=== PATIENT | female | born 1970 | race Two or more races ===

== ENCOUNTER 2016-08-26 10:43 | Emergency (ER) | payer OTHER, MEDICAID ==
[2016-08-26 10:56] VITALS: TEMP 97.7; O2SAT 98
--- NOTE | 2016-08-26 11:56 | EDPHY ---
General Narrative: CHIEF COMPLAINT: Cough, fever HISTORY OF PRESENT ILLNESS: Patient complains of 1 day history of cough and fever. She woke this morning feeling warm. She has been coughing throughout the day with a nonproductive, persistent cough. Is a painful cough but no chest pain at rest. No shortness of breath. She may be wheezing she feels. No headache. No neck pain or stiffness. No nausea or vomiting. No abdominal or urinary complaints. Has a 1-year-old child with the same complaints with the past 3 days. No recent travel or surgery. No history of venous thrombolic event. The lower extremity erythema edema or pain. No improvement with over-the -counter medications thus far. no other associated complaints or modifying factors. REVIEW OF SYSTEMS: Ten systems reviewed and are negative unless otherwise noted in the HPI EXAMINATION General Appearance: Alert, no distress Head: normocephalic, atraumatic Eyes: Pupils equal and round, no conjunctival pallor or injection. EOMs intact ENT, Mouth: Mucous membranes moist. Uvula midline. No erythema. Neck: Normal inspection, supple, non-tender. No meningismus or rigidity. Respiratory: Lungs are clear to auscultation. No wheezing, rhonchi or crackles. No consolidation or diminishment. Cardiovascular: Regular rate and rhythm. No murmur. Pulses intact distally. Gastrointestinal: Abdomen is soft and nontender Back: non-tender, no bony abnormalities Neurological: A&O, nonfocal, normal gait Skin: Warm and dry, no rash Extremities: Nontender, no pedal edema Psychiatric: Mood and affect normal DIFFERENTIAL DIAGNOSES: Including but not limited to bronchitis, pneumonia, influenza, viral illness MDM: 11:55 a.m. Cough and congestion noted with examination that suggest a viral illness. Her lungs are clear in all watson. No fever or hypoxia here. No evidence of pneumonia by examination. Questionably influenza by history and exam but no test will be performed as she does not want them done. Discharged home with symptomatic medications including cough medicine and anti-inflammatories. Follow up with primary care physician. Return to ER for worsening symptoms or any chest pain. She is comfortable this plan and discharged home in stable condition. SUPERVISION: This patient was independently evaluated without direct examination by the attending physician. Case was discussed with attending physician. - History Smoking Status: Never smoked - Objective Vital Signs: Initial Vital Signs Temperature (C) 97.7 F 08/26/16 10:54 Heart Rate 84 08/26/16 10:54 Respiratory Rate 18 08/26/16 10:54 Blood Pressure 122/59 H 08/26/16 10:54 O2 Sat (%) 98 08/26/16 10:54 O2 Delivery Mode Room Air Allergies/Adverse Reactions: No Known Allergies Allergy (Verified 08/26/16 10:50) Home Medications: Medication Instructions Recorded Levothyroxine 150 mcg 07/13/09 Benzonatate [Tessalon Pearles (RX)] 100 mg PO Q8 PRN #15 cap 08/26/16 Departure - Departure Disposition: Home, Routine, Self-Care Clinical Impression: Cough, Myalgia Condition: Good Instructions: Acute Bronchitis (ED), How Your Lungs Work (ED) Additional Instructions: Anti-inflammatories, cough medicine as prescribed as needed. Return to the ER for worsening symptoms. Follow up with primary care physician otherwise. Referrals: Jayne Rodriguez MD [Primary Care Provider] - As per Instructions Prescriptions: Benzonatate [Tessalon Pearles (RX)] 100 mg PO Q8 PRN #15 cap PRN Reason: Cough, Mild
[2016-08-26 12:07] VITALS: BP 98/66; PULSE 89; RESP 16
== END 2016-08-26 12:06 | disposition home or self-care (01) ==
DX: R05 Cough (principal); M79.1 Myalgia

== ENCOUNTER → 2017-08-20 | Outpatient (CLI) | payer MEDICAID, OTHER | LOC: FIMAGING 08:04 | PROVIDERS: ATTEND Family Medicine | DX: N83.201 Unspecified ovarian cyst, right side (principal); N94.89 Other specified conditions associated with female genital organs and menstrual cycle; Z97.5 Presence of (intrauterine) contraceptive device; Z80.41 Family history of malignant neoplasm of ovary ==

== ENCOUNTER → 2017-11-19 | Outpatient (CLI) | payer BC, MEDICAID | LOC: FIMAGING 15:33 | PROVIDERS: ATTEND Family Medicine | DX: N83.201 Unspecified ovarian cyst, right side (principal); N83.202 Unspecified ovarian cyst, left side; N94.89 Other specified conditions associated with female genital organs and menstrual cycle ==

== ENCOUNTER → 2018-08-20 | Outpatient (CLI) | payer MEDICAID | LOC: FIMAGING 12:02 | PROVIDERS: ATTEND Obstetrics & Gynecology | DX: N93.9 Abnormal uterine and vaginal bleeding, unspecified (principal); Z97.5 Presence of (intrauterine) contraceptive device ==